=== PATIENT | male | born 1980 | race African-American/Black ===

== ENCOUNTER 2018-11-18 01:35 | Emergency (ER) | payer OTHER ==
[~2018-11-18] VITALS: Ht 182.9 cm; Wt 70.3 kg
[2018-11-18] MEDS ORDERED: CLINDAMYCIN 900 MG/50 ML IVPB 50 ML IV ONE (01:45)
[2018-11-18] MEDS ORDERED: LIDOCAINE 1% INJ 20 ML 20 ML VIAL INJ ONE (01:45)
[2018-11-18] MEDS ORDERED: TETANUS,DIPTH,PERTUSS P/F (BOOSTRIX) 0.5 ML VIAL IM ONE (01:45)
[2018-11-18] MEDS ORDERED: LIDOCAINE/EPI 2% 1:100,00 (XYLOCAINE) 20 ML VIAL INJ ONE (01:45)
[2018-11-18] MEDS ORDERED: fentaNYL INJECTION 100 MCG/2 ML AMP IVP ONE (02:00)
[2018-11-18 02:04] LABS: BASOPHILS % (AUTO) 1 % (0-10); EOSINOPHILS # (AUTO) 0.1 10^3/uL (0.0-0.3); EOSINOPHILS % (AUTO) 3 % (0-10); HEMATOCRIT 43 % (40-54); HEMOGLOBIN 14.5 G/DL (13.3-17.7); LYMPHOCYTES # (AUTO) 1.9 X 10^3 (1.0-4.0); LYMPHOCYTES % (AUTO) 44 % (12-44); MEAN CORPUSCULAR HEMOGLOBIN 29 PG (25-34); MEAN CORPUSCULAR HGB CONC 34 G/DL (32-36); MEAN CORPUSCULAR VOLUME 84 FL (80-99); MEAN PLATELET VOLUME 10.3 FL (7.4-10.4); MONOCYTES # (AUTO) 0.4 X 10^3 (0.0-1.0); MONOCYTES % (AUTO) 9 % (0-12); NEUTROPHILS % (AUTO) 44 % (42-75); PLATELET COUNT 218 10^3/uL (130-400); RED CELL DISTRIBUTION WIDTH 13.7 % (10.0-14.5); WHITE BLOOD COUNT 4.4 10^3/uL (4.3-11.0)
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
[2018-11-18 02:23] LABS: ALANINE AMINOTRANSFERASE 19 U/L (0-55); ALBUMIN 4.4 GM/DL (3.2-4.5); ALKALINE PHOSPHATASE 63 U/L (40-136); BILIRUBIN,TOTAL 0.2 MG/DL (0.1-1.0); BUN/CREATININE RATIO 9; CALCIUM 8.8 MG/DL (8.5-10.1); CARBON DIOXIDE 21 MMOL/L (21-32); CHLORIDE 108 MMOL/L (98-107); CREATININE SERUM 0.95 MG/DL (0.60-1.30); GFR ESTIMATED > 60; GLUCOSE 95 MG/DL (70-105); POTASSIUM 3.1 MMOL/L (3.6-5.0); SODIUM 142 MMOL/L (135-145); TOTAL PROTEIN 6.7 GM/DL (6.4-8.2)
[2018-11-18] MEDS ORDERED: ONDANSETRON 4 MG/2 ML (SDV) Z0FRAN ONE (03:05)
[2018-11-18] MEDS ORDERED: ONDANSETRON 4 MG/2 ML (SDV) Z0FRAN IVP ONE (03:05)
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
[2018-11-18 03:52] LABS: AMPHETAMINE SCREEN, URINE NEGATIVE (NEGATIVE); BARBITURATE SCREEN URINE NEGATIVE (NEGATIVE); BENZODIAZEPINES SCREEN URINE NEGATIVE (NEGATIVE); CANNABINOID SCREEN, URINE POSITIVE (NEGATIVE); COCAINE SCREEN URINE POSITIVE (NEGATIVE); METHADONE STAT NEGATIVE (NEGATIVE); METHAMPHETAMINE SCREEN URINE S NEGATIVE (NEGATIVE); OPIATE SCREEN URINE NEGATIVE (NEGATIVE); OXYCODONE STAT NEGATIVE (NEGATIVE); PROPOXYPHENE STAT NEGATIVE (NEGATIVE); TRICYCLIC ANTIDEPRESSANTS SCRE NEGATIVE (NEGATIVE)
[2018-11-18] MEDS ORDERED: KCL 10 MEQ TAB (MICRO K) PO ONE (04:00)
--- NOTE | 2018-11-18 05:00 | NUR ---
SUTURES TO RIGHT HAND USING 4-0 PROLENE AND 5-[address] BASILIO WITH ASSISTANCE OF MEDICAL STUDENT. 4 CM LAC TO 5TH FINGER KNUCKLE = 8 SUTURES 11 CM LAC TO DORSUM HAND = 11 SUTURES 4TH FINGER 1.5 CM LAC = 2 SUTURES DISTAL PALM 4 CM LAC = 3 SUTURES PROXIMAL PALM 4.5 CM LAC = 6 SUTURES HAND COVERED WITH XEROFORM, GAUZE ROLL, KERLEX, AND GUILHERME WRAP TO SECURE BY DR. BASILIO.
[2018-11-18] MEDS ORDERED: SULF1TAB35 PO (05:14)
[2018-11-18] MEDS ORDERED: HYDR-3812 PO (05:14)
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
[2018-11-18 05:34] VITALS: BP 137/79
--- NOTE | 2018-11-18 07:17 | Diagnostic Imaging Report ---
PATIENT HISTORY: Soft tissue injury to the right hand. Laceration.. TECHNIQUE: 3 views of the right hand COMPARISON: None FINDINGS: There is a soft tissue defect at the dorsal lateral aspect of the right fourth and fifth fingers. There is a linear density along the cortex of the fifth finger proximal phalanx. It is unclear if this represents tiny foreign bodies versus small cortical fragments of bone. No displaced fractures are seen. IMPRESSION: 1. Soft tissue laceration to the right fourth and fifth fingers with linear hyperdensities adjacent to the right fifth proximal phalanx. It is unclear if these represent tiny foreign bodies or small fragments of cortical bone. Called to [facility] ER at 7:16 a.m. by ronnie. Dictated by: Dictated on workstation # [id number]
== END 2018-11-18 05:44 | disposition home or self-care (01) ==
LOC: ER 01:38
DX: S66.921A Laceration of unspecified muscle, fascia and tendon at wrist and hand level, right hand, initial encounter (principal); S51.812A Laceration without foreign body of left forearm, initial encounter; S61.216A Laceration without foreign body of right little finger without damage to nail, initial encounter; S61.214A Laceration without foreign body of right ring finger without damage to nail, initial encounter; F10.129 Alcohol abuse with intoxication, unspecified; E87.6 Hypokalemia; R40.2142 Coma scale, eyes open, spontaneous, at arrival to emergency department; R40.2252 Coma scale, best verbal response, oriented, at arrival to emergency department; R40.2362 Coma scale, best motor response, obeys commands, at arrival to emergency department; F17.200 Nicotine dependence, unspecified, uncomplicated; Y90.7 Blood alcohol level of 200-239 mg/100 ml; X99.8XXA Assault by other sharp object, initial encounter
CPT/HCPCS: 36415; 73130; 80053; 80306; 80320; 85025; 90715

== ENCOUNTER 2018-12-04 12:40 | Emergency (ER) | payer OTHER ==
[~2018-12-04] VITALS: Ht 193 cm; Wt 71.9 kg
[~2018-12-04 12:40] MED LIST: HYDR-3812 PO; SULF1TAB35 PO
[2018-12-04 13:13] VITALS: BP 141/91
== END 2018-12-04 13:16 | disposition home or self-care (01) ==
LOC: EDUNIT# 12:40 → ER 12:41
DX: S61.411D Laceration without foreign body of right hand, subsequent encounter (principal); X58.XXXD Exposure to other specified factors, subsequent encounter

== ENCOUNTER 2020-11-25 06:21 | Inpatient (IN) | payer SELFPAY ==
[2020-11-25] VITALS (20 sets, daily range): BP systolic 127–163; BP diastolic 72–104
[~2020-11-25] VITALS: Ht 172 cm; Wt 71.9 kg
[~2020-11-25 06:21] MED LIST changes: +ACHD5005 PO; -HYDR-3812 PO; -SULF1TAB35 PO; +SULF1TAB38 PO
[2020-11-25] MEDS ORDERED: ceFAZolin INJECTION 1,000 MG in WATER (STERILE) FOR INJECTION 10 ML IV ONE (06:30)
[2020-11-25] MEDS ORDERED: fentaNYL INJ 100 MCG/2 ML AMP IVP ONE (06:30)
[2020-11-25] MEDS ORDERED: TETANUS,DIPTH,PERTUSS P/F (BOOSTRIX) 0.5 ML VIAL IM ONE (06:30)
[2020-11-25] MEDS ORDERED: NS IV 1000 ML 1,000 ML IV SCH (06:30)
[2020-11-25 06:44] LABS: HEMATOCRIT 45 % (40-54); HEMOGLOBIN 14.6 g/dL (13.3-17.7); MEAN CORPUSCULAR HEMOGLOBIN 28 pg (25-34); MEAN CORPUSCULAR HGB CONC 32 g/dL (32-36); MEAN CORPUSCULAR VOLUME 87 fL (80-99); MEAN PLATELET VOLUME 9.9 fL (9.0-12.2); PLATELET COUNT 243 10^3/uL (130-400); WHITE BLOOD COUNT 7.1 10^3/uL (4.3-11.0)
[2020-11-25] MEDS ORDERED: LIDOCAINE 1% INJ 20 ML 20 ML VIAL ONE (06:58)
[2020-11-25 06:59] LABS: POTASSIUM 3.2 MMOL/L (3.6-5.0)
[2020-11-25 07:00] LABS: ALBUMIN 4.3 GM/DL (3.2-4.5)
[2020-11-25] MEDS ORDERED: CATHETER FLUSH 10 ML SYR IV PRN (07:00)
[2020-11-25] MEDS ORDERED: NS 100 ML (IVPB) BAG IV ONE (07:00)
[2020-11-25] MEDS ORDERED: IOHEXOL 350 MG/ML 100 ML (OMNIPAQUE 350) VIAL IV ONE (07:00)
[2020-11-25] MEDS ORDERED: HOLD METFORMIN - RECEIVED CONTRAST 20 ML VIAL IV SCH (07:00)
[2020-11-25 07:02] LABS: TOTAL PROTEIN 7.2 GM/DL (6.4-8.2)
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
[2020-11-25 07:04] LABS: BILIRUBIN,TOTAL 0.3 MG/DL (0.1-1.0)
[2020-11-25 07:05] LABS: PHOSPHORUS 3.6 MG/DL (2.3-4.7)
[2020-11-25 07:06] LABS: CREATININE SERUM 0.84 MG/DL (0.60-1.30)
[2020-11-25 07:07] LABS: BILIRUBIN,DIRECT 0.1 MG/DL (0.0-0.3); BILIRUBIN,INDIRECT 0.2 MG/DL
[2020-11-25 07:09] LABS: MAGNESIUM 2.4 MG/DL (1.6-2.4)
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
[2020-11-25 07:11] LABS: FIBRIN DEGRADATION PRODUCTS < 0.27 UG/ML (0.00-0.49); FIBRINOGEN 232 MG/DL (221-496); INR 0.9 (0.8-1.4); PARTIAL THROMBOPLASTIN TIME 29 SEC (24-35)
--- NOTE | 2020-11-25 07:27 | Diagnostic Imaging Report ---
INDICATION: Pneumothorax Single AP view of the chest is obtained with comparison made to study of earlier in the day. There has been placement of left thoracostomy tube. Small left apical pneumothorax is noted. Right lung appears clear. There is no midline shift. IMPRESSION: Small left apical pneumothorax with left thoracostomy tube in place. Dictated by: Dictated on workstation # [id number]
[2020-11-25] MEDS ORDERED: ONDANSETRON 4 MG/2 ML (SDV) Z0FRAN ONE (07:29)
[2020-11-25] MEDS ORDERED: proPOfol 200 MG/20 ML (DIPRIVAN) VIAL IV ONE (07:29)
[2020-11-25] MEDS ORDERED: fentaNYL INJ 100 MCG/2 ML AMP ONE (07:29)
[2020-11-25] MEDS ORDERED: ROCURONIUM 10 MG/ML 5 ML SYRINGE IV ONE (07:29)
[2020-11-25] MEDS ORDERED: SUCCINYLCHOLINE INJ 100 MG/5 ML SYR/VIAL ONE (07:29)
[2020-11-25] MEDS ORDERED: MIDAZOLAM 2 MG/2 ML (VERSED) VIAL ONE (07:29)
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
[2020-11-25 07:43] LABS: BILIRUBIN,URINE NEGATIVE (NEGATIVE); CLARITY,URINE CLEAR; COLOR,URINE YELLOW; GLUCOSE, URINE (UA) NEGATIVE (NEGATIVE); KETONES,URINE NEGATIVE (NEGATIVE); LEUKOCYTE ESTERASE ,URINE NEGATIVE (NEGATIVE); NITRITE,URINE NEGATIVE (NEGATIVE); PH,URINE 6.5 (5-9); PROTEIN,URINE NEGATIVE (NEGATIVE)
[2020-11-25] MEDS: LACTATED RINGERS 1,000 ML IV PRN ×4 (07:47→08:54)
[2020-11-25 07:55] LABS: AMPHETAMINE SCREEN, URINE NEGATIVE (NEGATIVE); BARBITURATE SCREEN URINE NEGATIVE (NEGATIVE); BENZODIAZEPINES SCREEN URINE NEGATIVE (NEGATIVE); CANNABINOID SCREEN, URINE POSITIVE (NEGATIVE); COCAINE SCREEN URINE POSITIVE (NEGATIVE); METHADONE STAT NEGATIVE (NEGATIVE); METHAMPHETAMINE SCREEN URINE S NEGATIVE (NEGATIVE); OPIATE SCREEN URINE NEGATIVE (NEGATIVE); OXYCODONE STAT NEGATIVE (NEGATIVE); PROPOXYPHENE STAT NEGATIVE (NEGATIVE); TRICYCLIC ANTIDEPRESSANTS SCRE NEGATIVE (NEGATIVE)
[2020-11-25 08:03] LABS: BACTERIA,URINE TRACE /HPF; RBC,URINE RARE /HPF; SQUAMOUS EPITHELIAL CELL,UR RARE /HPF
[2020-11-25] MEDS ORDERED: SEVOFLURANE (ULTANE) 15 ML INHAL SOLN ONE (08:51)
[2020-11-25] MEDS ORDERED: morphine INJ 10 MG/ML 1ML (SYR OR VIAL) IVP ONE (09:00)
[2020-11-25] MEDS ORDERED: PROMETHAZINE INJ 25 MG/ML (PHENERGAN) AMP IVP ONE (09:00)
[2020-11-25] MEDS ORDERED: HYDROmorphone 2 MG/ML VIAL (DILAUDID) IV ONE (09:00)
[2020-11-25] MEDS ORDERED: MEPERIDINE (DEMEROL) INJ 50 MG/ML IVP ONE (09:00)
--- NOTE | 2020-11-25 09:17 | Anesthesia-General Post-Op ---
General Patient Condition Mental Status/LOC: Same as Preop Cardiovascular: Satisfactory Nausea/Vomiting: Absent Respiratory: Satisfactory Pain: Controlled Complications: Absent Post Op Complications Complications None Follow Up Care/Instructions Patient Instructions None needed. Anesthesia/Patient Condition Patient Condition Patient is doing well, no complaints, stable vital signs, no apparent adverse anesthesia problems. No complications reported per nursing. ION CRUZ CRNA Nov 25, 2020 09:17
[2020-11-25] MEDS: ONDANSETRON 4 MG/2 ML (SDV) Z0FRAN IVP PRN ×2 (10:26→20:08)
[2020-11-25] MEDS: fentaNYL INJ 100 MCG/2 ML AMP IVP PRN ×5 (10:35→22:29)
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
[2020-11-25] MEDS: POTASSIUM CL 10MEQ/50ML IVPB 50 ML IV SCH ×4 (12:20→15:12)
[2020-11-25] MEDS: LACTATED RINGERS 1,000 ML IV SCH ×2 (12:20→19:43)
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
[2020-11-25] MEDS: ceFAZolin INJECTION 1,000 MG in WATER (STERILE) FOR INJECTION 10 ML IV SCH ×2 (16:27→23:48)
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
[2020-11-25] MEDS: HYDROcodone/APAP 5 MG/325 MG (LORTAB) TAB PO PRN ×2 (16:30→22:29)
[2020-11-25] MEDS ORDERED: RT-ALBUTEROL SULF 2.5 MG/3 ML PRE-MIX VIAL INH PRN (17:15)
[2020-11-25] MEDS: DOCUSATE SODIUM 100 MG (COLACE) CAP PO SCH (19:43)
[2020-11-25] MEDS: RT-ALBUTEROL SULF 2.5 MG/3 ML PRE-MIX VIAL INH SCH (23:07)
[2020-11-26] VITALS (20 sets, daily range): BP systolic 94–160; BP diastolic 48–110
[2020-11-26] MEDS: LACTATED RINGERS 1,000 ML IV SCH ×3 (02:15→18:56)
[2020-11-26] MEDS: fentaNYL INJ 100 MCG/2 ML AMP IVP PRN ×8 (04:33→23:03)
[2020-11-26] MEDS: HYDROcodone/APAP 5 MG/325 MG (LORTAB) TAB PO PRN ×5 (04:34→23:03)
[2020-11-26 05:13] LABS: BASOPHILS % (AUTO) 0 % (0-10); EOSINOPHILS % (AUTO) 0 % (0-10); HEMATOCRIT 43 % (40-54); HEMOGLOBIN 13.6 g/dL (13.3-17.7); LYMPHOCYTES # (AUTO) 1.2 10^3/uL (1.0-4.0); LYMPHOCYTES % (AUTO) 16 % (12-44); MEAN CORPUSCULAR HEMOGLOBIN 28 pg (25-34); MEAN CORPUSCULAR HGB CONC 32 g/dL (32-36); MEAN CORPUSCULAR VOLUME 86 fL (80-99); MONOCYTES # (AUTO) 0.6 10^3/uL (0.0-1.0); MONOCYTES % (AUTO) 9 % (0-12); NEUTROPHILS # (AUTO) 5.6 10^3/uL (1.8-7.8); NEUTROPHILS % (AUTO) 75 % (42-75); PLATELET COUNT 199 10^3/uL (130-400); WHITE BLOOD COUNT 7.4 10^3/uL (4.3-11.0)
[2020-11-26 05:29] LABS: ALBUMIN 3.8 GM/DL (3.2-4.5); POTASSIUM 3.9 MMOL/L (3.6-5.0)
[2020-11-26 05:30] LABS: CALCIUM 9.1 MG/DL (8.5-10.1)
[2020-11-26 05:32] LABS: TOTAL PROTEIN 6.4 GM/DL (6.4-8.2)
[2020-11-26 05:35] LABS: CREATININE SERUM 0.76 MG/DL (0.60-1.30); PHOSPHORUS 2.7 MG/DL (2.3-4.7)
[2020-11-26 05:38] LABS: MAGNESIUM 1.9 MG/DL (1.6-2.4)
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
[2020-11-26] MEDS: RT-ALBUTEROL SULF 2.5 MG/3 ML PRE-MIX VIAL INH SCH ×2 (07:14→22:51)
[2020-11-26] MEDS: THIAMINE 100 MG (VITAMIN B-1) TAB PO SCH (07:51)
[2020-11-26] MEDS: FOLIC ACID 1 MG TAB PO SCH (07:51)
[2020-11-26] MEDS: DOCUSATE SODIUM 100 MG (COLACE) CAP PO SCH ×2 (07:52→20:16)
[2020-11-26] MEDS: PANTOPRAZOLE 40 MG (PROTONIX) TAB PO SCH (07:52)
[2020-11-26] MEDS: ONDANSETRON 4 MG/2 ML (SDV) Z0FRAN IVP PRN ×2 (08:32→10:56)
--- NOTE | 2020-11-26 08:32 | Diagnostic Imaging Report ---
INDICATION: Followup pneumothorax, chest tube COMPARISON: 11/25/2020 TECHNIQUE: Single radiograph of the chest dated 11/26/2020. FINDINGS: Left-sided chest tube is again identified with the distal tip projecting towards the left upper lung. Metallic cherie are now identified overlying the left lateral chest and left shoulder region, new from the prior examination. The cardiac silhouette is within normal limits in size. No significant pulmonary vascular congestion. The right lung is clear. Small left basilar pleural parenchymal opacity has developed since the prior examination. Additionally, thin lucencies are noted along the left heart border. Previously noted left-sided pneumothorax appears improved without definitive pneumothorax noted apically. Subcutaneous emphysema of the left chest wall is again seen. Osseous structures appear stable. IMPRESSION: Left-sided chest tube is in place with improvement of previously noted left-sided pneumothorax. Very thin lucency along the left heart border, which may relate to very minimal pneumomediastinum versus some residual pneumothorax noted medially. Recommend continued radiographic followup. Developing small left basilar pleural-parenchymal opacity, related to a combination of pleural fluid with adjacent atelectasis and/or infiltrate. Placement of multiple surgical clips overlying the left shoulder and chest. Dictated by: Dictated on workstation # [id number]
[2020-11-26] MEDS: HYDROmorphone 2 MG/ML VIAL (DILAUDID) IV PRN (10:07)
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
--- NOTE | 2020-11-26 11:14 | Physical Therapy Daily Note ---
PT Daily Note-Current Subjective Pt. in bed, agrees to sit up in chair. Nurse present to give pain medication, no objective pain measure given. Pt. does wince in pain with transitional movements. Mental Status Patient Orientation: Person, Place, Time, Situation Attachments: Chest Tube, IV Transfers SCALE: Activities may be completed with or without assistive devices. 2-Hodnnpuxeu-tsffwyu completes the activity by him/herself with no assistance from a helper. 5-Set-up or Clean-up Assistance-helper sets up or cleans up; patient completes activity. [place] assists only prior to or following the activity. 4-Supervision or Touching Assistance-helper provides verbal cues and/or touching/steadying and/or contact guard assistance as patient completes activity. Assistance may be provided throughout the activity or intermittently. 3-Partial/Moderate Assistance-helper does LESS THAN HALF the effort. [place] lifts, holds or supports trunk or limbs, but provides less than half the effort. 2-Substantial/Maximal Assistance-helper does MORE THAN HALF the effort. [place] lifts or holds trunk or limbs and provides more than half the effort. 6-Xsuslviml-usubjs does ALL the effort. Patient does none of the effort to complete the activity. Or, the assistance of 2 or more helpers is required for the patient to complete the activity. If activity was not attempted, code reason: 7-Patient Refused. 9-Not Applicable-not attempted and the patient did not perform the activity before the current illness, exacerbation or injury. 10-Not Attempted due to Environmental Limitations-(lack of equipment, weather restraints, etc.). 88-Not Attempted due to Medical Conditions or Safety Concerns. Lying to Sitting/Side of Bed(Q: 4 Sit to Stand (QC): 4 Weight Bearing Right Lower Extremity: Right Weight Bearing/Tolerated Left Lower Extremity: Left Full Weight Bearing Gait Training Does the Patient Walk?: Yes Distance: 40 ft Walk 10 feet (QC): 4 Gait Persons Needed: 1 Gait Assistive Device: None Treatments gait training in room, transfers Assessment Current Status: Good Progress Pt. is progressing very well with therapy. He was able to ambulate in room today and demonstrates good gait balance. Pt. has most pain with transitional movements to be out of bed and sit/stand. Pt. up in chair post session with all needs met. PT Intermediate Goals Intermediate Goals PT Groundskeeper Porter Goals Time Frame: Dec 02, 2020 Roll Left & Right (QC): 6 Sit to Lying (QC): 6 Lying-Sitting on Side/Bed(QC): 6 Sit to Stand (QC): 6 Chair/Lae-kg-Zousp Xfer(QC): 6 Walk 10 feet (QC): 6 Walk 50ft with 2 Turns (QC): 6 Walk 150 ft (QC): 6 PT Plan Treatment/Plan Treatment Plan: Continue Plan of Care Treatment Plan: Bed Mobility, Education, Functional Activity Cami, Functional Strength, Gait, Safety, Therapeutic Exercise, Transfers Treatment Duration: Dec 02, 2020 Frequency: 6 times per week Estimated Hrs Per Day: .25 hour per day Patient and/or Family Agrees t: Yes Time/GCodes Time In: 1000 Time Out: 1020 Total Billed Treatment Time: 20 Total Billed Treatment 1, GT 20' AWILDA PRATER PT Nov 26, 2020 11:14
[2020-11-26] MEDS ORDERED: PROMETHAZINE INJ 25 MG/ML (PHENERGAN) AMP IVP PRN (11:15)
[2020-11-26] MEDS ORDERED: ONDANSETRON 4 MG/2 ML (SDV) Z0FRAN IVP PRN (11:30)
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
[2020-11-27] VITALS (16 sets, daily range): BP systolic 119–161; BP diastolic 57–108
[2020-11-27] MEDS: fentaNYL INJ 100 MCG/2 ML AMP IVP PRN ×8 (02:23→23:52)
[2020-11-27] MEDS: LACTATED RINGERS 1,000 ML IV SCH ×2 (02:30→14:43)
[2020-11-27] MEDS: HYDROcodone/APAP 5 MG/325 MG (LORTAB) TAB PO PRN ×4 (03:33→18:06)
[2020-11-27] MEDS ORDERED: KCL 20 MEQ TAB (K-DUR) PO SCH (06:00)
[2020-11-27] MEDS ORDERED: POTASSIUM CL 10MEQ/50ML IVPB 50 ML IV SCH (06:00)
[2020-11-27] MEDS ORDERED: MAGNESIUM 1 GM/100 ML IVPB 100 ML IV SCH (06:00)
[2020-11-27] MEDS: THIAMINE 100 MG (VITAMIN B-1) TAB PO SCH (06:19)
[2020-11-27 06:23] LABS: BASOPHILS % (AUTO) 0 % (0-10); EOSINOPHILS # (AUTO) 0.1 10^3/uL (0.0-0.3); EOSINOPHILS % (AUTO) 1 % (0-10); HEMATOCRIT 41 % (40-54); HEMOGLOBIN 13.2 g/dL (13.3-17.7); LYMPHOCYTES # (AUTO) 1.3 10^3/uL (1.0-4.0); LYMPHOCYTES % (AUTO) 19 % (12-44); MEAN CORPUSCULAR HEMOGLOBIN 28 pg (25-34); MEAN CORPUSCULAR HGB CONC 32 g/dL (32-36); MEAN CORPUSCULAR VOLUME 87 fL (80-99); MONOCYTES # (AUTO) 0.6 10^3/uL (0.0-1.0); MONOCYTES % (AUTO) 10 % (0-12); NEUTROPHILS # (AUTO) 4.7 10^3/uL (1.8-7.8); NEUTROPHILS % (AUTO) 70 % (42-75); PLATELET COUNT 209 10^3/uL (130-400); WHITE BLOOD COUNT 6.8 10^3/uL (4.3-11.0)
[2020-11-27 06:36] LABS: ALBUMIN 3.6 GM/DL (3.2-4.5); POTASSIUM 3.4 MMOL/L (3.6-5.0)
[2020-11-27 06:37] LABS: CALCIUM 9.1 MG/DL (8.5-10.1)
[2020-11-27 06:39] LABS: TOTAL PROTEIN 6.3 GM/DL (6.4-8.2)
[2020-11-27 06:40] LABS: BILIRUBIN,TOTAL 0.6 MG/DL (0.1-1.0)
[2020-11-27 06:42] LABS: CREATININE SERUM 0.78 MG/DL (0.60-1.30); PHOSPHORUS 2.8 MG/DL (2.3-4.7)
[2020-11-27 06:45] LABS: MAGNESIUM 1.8 MG/DL (1.6-2.4)
[2020-11-27] MEDS: DOCUSATE SODIUM 100 MG (COLACE) CAP PO SCH ×2 (07:39→20:36)
[2020-11-27] MEDS: PANTOPRAZOLE 40 MG (PROTONIX) TAB PO SCH (07:40)
[2020-11-27] MEDS: FOLIC ACID 1 MG TAB PO SCH (07:40)
[2020-11-27] MEDS ORDERED: KCL 20 MEQ TAB (K-DUR) PO ONE (08:00)
--- NOTE | 2020-11-27 08:19 | Tele-ICU Progress Note ---
Subjective Date Seen by a Provider: Nov 27, 2020 Time Seen by a Provider: 07:20 Subjective/Events-last exam This virtual visit was conducted using real time audio/video. Thank you for asking us to see this patient for respiratory issues. HPC: Recent events: none, on water seal per RN PE: VSS. Appears comfortable. HEENT: No obvious masses, adenopathy or JVD. Chest: clear to auscultation. CV: RRR S1 S2 No murmur or added sounds. Abd: Non-tender. Bowel sounds Y. : Unremarkable. Guzman N. ZIGZAG STITCHER/psychiatric: Alert and oriented, grossly intact. No obvious focal findings. Extremities: edema. Capillary refill < 3 seconds. Skin: unremarkable. Results: Decreased Hb 13.2, K 3.4. CXR unchanged. A/P: Respiratory insufficiency/distress: greatly improved. Available chart/ vitals / labs /images reviewed. Video assessment done using teleICU camera, rest of exam as per RN. Respiratory: Continue present management with pulm toilet/albuterol. Possible transfer today. Discussed with DEREK Pruitt. Asked RN to reach out to eICU if any questions or concerns later. Time spent with patient/coordination of care with other health professionals (mins):15 Sepsis Event Evaluation Height, Weight, BMI Height: 6'0" Weight: 155lbs. oz. 70.677325nm; 24.33 BMI Method:Actual Focused Exam Lactate Level 11/25/20 06:38: Lactic Acid Level 1.74 Exam Exam Patient acknowledged, consented, and participated in this virtual visit which was conducted using real time audio/video Vital Signs Date Time Temp Pulse Resp B/P (MAP) Pulse Ox O2 Delivery O2 Flow Rate FiO2 11/27/20 08:00 107 36 161/108 (125) 96 Room Air 11/27/20 07:59 37.3 11/27/20 07:44 96 Room Air 11/27/20 07:00 80 11/27/20 07:00 84 23 142/90 (107) 94 Room Air 11/27/20 06:00 74 12 136/100 (112) 95 Room Air 11/27/20 05:00 81 12 150/98 (115) 94 Room Air 11/27/20 05:00 37.4 11/27/20 04:00 79 12 132/65 (87) 96 Room Air 11/27/20 04:00 93 Room Air 11/27/20 03:00 86 12 119/57 (77) 97 Room Air 11/27/20 02:00 83 14 128/76 (93) 97 Room Air 11/27/20 01:00 98 12 141/63 (89) 97 Room Air 11/27/20 01:00 92 11/27/20 00:00 96 13 128/72 (90) 96 Room Air 11/26/20 23:59 93 Room Air 11/26/20 23:00 78 14 130/58 (82) 100 Room Air 11/26/20 22:51 99 Room Air 11/26/20 22:00 89 24 135/48 (77) 97 Room Air 11/26/20 21:00 90 20 135/98 (110) 97 Room Air 11/26/20 20:00 93 16 138/93 (108) 97 Room Air 11/26/20 20:00 93 Room Air 11/26/20 19:20 37.8 11/26/20 19:00 92 19 133/87 (102) 97 Room Air 11/26/20 19:00 90 11/26/20 18:00 90 14 148/102 (117) 96 Room Air 11/26/20 17:00 76 14 132/89 (103) 98 Room Air 11/26/20 16:12 96 Nasal Cannula 0.00 11/26/20 16:00 90 18 143/86 (105) 95 Room Air 11/26/20 15:45 37.2 11/26/20 15:00 81 13 96 Room Air 11/26/20 14:00 84 18 97 Room Air 11/26/20 13:00 90 16 95 Room Air 11/26/20 12:51 67 11/26/20 12:06 36.2 11/26/20 12:00 93 Nasal Cannula 0.00 11/26/20 12:00 85 24 158/109 (125) 95 Room Air 11/26/20 11:00 80 16 92 Room Air 11/26/20 10:00 66 13 136/92 (109) 96 Room Air 11/26/20 09:00 93 28 152/88 (99) 96 Room Air 11/26/20 08:29 37.4 I & O 11/27/20 07:00 Intake Total 3450 ml Output Total 3157 ml Balance 293 ml Height & Weight Height: 6'0" Weight: 155lbs. oz. 70.076956nb; 24.33 BMI Method:Actual General Appearance: Anxious, Mild Distress HEENT: PERRL/EOMI, Normal ENT Inspection Neck: Full Range of Motion, Normal Inspection, Non Tender, Supple Respiratory: Normal Breath Sounds, No Accessory Muscle Use, No Respiratory Dist ress, Other (CT in place, no air leak) Cardiovascular: Regular Rate, Rhythm, No Murmur Capillary Refill: Less Than 3 Seconds Peripheral Pulses: 2+ Dorsalis Pedis (R), 2+ Left Dors-Pedis (L) Gastrointestinal: normal bowel sounds, non tender, soft Extremity: Normal Capillary Refill, Normal Inspection, Normal Range of Motion, Non Tender, No Calf Tenderness, No Pedal Edema Neurologic/Psychiatric: Alert, Oriented x3, No Motor/Sensory Deficits, optical advisor II- XII Norm as Tested Skin: Normal Color, Warm/Dry, Other (dressing over chest. CTI. tenderness to palpation) Results Lab Laboratory Tests 11/26/20 05:08 11/27/20 04:55 Assessment/Plan Assessment/Plan See free text JOVANI ROBERTS MD Nov 27, 2020 08:19
[2020-11-27] MEDS: RT-ALBUTEROL SULF 2.5 MG/3 ML PRE-MIX VIAL INH SCH (09:09)
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
--- NOTE | 2020-11-27 11:07 | Diagnostic Imaging Report ---
Indication: Dyspnea, followup pneumothorax. Comparison: 11/26/2020. Discussion: Single portable upright view of the chest was obtained. Left chest tube is stable. Small amount of left chest wall subcutaneous emphysema is decreased. No pneumothorax identified. Small left pleural effusion is stable. Normal heart size. The right lung is well aerated. Impression: 1. Decreasing left chest wall subcutaneous emphysema. No pneumothorax. Dictated by: Dictated on workstation # [id number]
[2020-11-27] MEDS: HYDROmorphone 2 MG/ML VIAL (DILAUDID) IV PRN ×3 (11:57→20:36)
[2020-11-28 03:52] VITALS: BP 152/84
[2020-11-28] MEDS: HYDROmorphone 2 MG/ML VIAL (DILAUDID) IV PRN ×2 (04:11→10:57)
[2020-11-28 04:29] LABS: BASOPHILS % (AUTO) 1 % (0-10); EOSINOPHILS # (AUTO) 0.2 10^3/uL (0.0-0.3); EOSINOPHILS % (AUTO) 4 % (0-10); HEMATOCRIT 45 % (40-54); HEMOGLOBIN 14.4 g/dL (13.3-17.7); LYMPHOCYTES # (AUTO) 1.5 10^3/uL (1.0-4.0); LYMPHOCYTES % (AUTO) 28 % (12-44); MEAN CORPUSCULAR HEMOGLOBIN 28 pg (25-34); MEAN CORPUSCULAR HGB CONC 32 g/dL (32-36); MEAN CORPUSCULAR VOLUME 87 fL (80-99); MEAN PLATELET VOLUME 10.3 fL (9.0-12.2); MONOCYTES # (AUTO) 0.6 10^3/uL (0.0-1.0); MONOCYTES % (AUTO) 11 % (0-12); NEUTROPHILS % (AUTO) 56 % (42-75); PLATELET COUNT 225 10^3/uL (130-400); WHITE BLOOD COUNT 5.4 10^3/uL (4.3-11.0)
[2020-11-28 04:43] LABS: POTASSIUM 3.8 MMOL/L (3.6-5.0)
[2020-11-28 04:44] LABS: CALCIUM 9.8 MG/DL (8.5-10.1)
[2020-11-28 04:45] LABS: TOTAL PROTEIN 7.2 GM/DL (6.4-8.2)
[2020-11-28 04:47] LABS: BILIRUBIN,TOTAL 0.6 MG/DL (0.1-1.0)
[2020-11-28 04:49] LABS: CREATININE SERUM 0.78 MG/DL (0.60-1.30)
[2020-11-28] MEDS: THIAMINE 100 MG (VITAMIN B-1) TAB PO SCH (06:11)
--- NOTE | 2020-11-28 06:42 | Diagnostic Imaging Report ---
INDICATION: Chest tube evaluation AP view of the chest is obtained. Since study of one day earlier, left thoracostomy tube remains in place. There is blunting of the left costophrenic sulcus, however, no pneumothorax is identified. The right lung remains clear and well expanded. IMPRESSION: Mild left pleural fluid and/or thickening without evidence of pneumothorax. Dictated by: Dictated on workstation # [id number]
[2020-11-28] MEDS: fentaNYL INJ 100 MCG/2 ML AMP IVP PRN ×2 (07:00→09:21)
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
[2020-11-28] MEDS: FOLIC ACID 1 MG TAB PO SCH (07:55)
[2020-11-28] MEDS: DOCUSATE SODIUM 100 MG (COLACE) CAP PO SCH ×2 (07:55→20:31)
[2020-11-28] MEDS: PANTOPRAZOLE 40 MG (PROTONIX) TAB PO SCH (07:55)
[2020-11-28 08:00] VITALS: BP 150/98
[2020-11-28 12:00] VITALS: BP 160/110
[2020-11-28] MEDS ORDERED: hydrALAZINE (APESOLINE) 20 MG/ML VIAL IV PRN (13:00)
[2020-11-28] MEDS ORDERED: amLODIPine 10 MG (NORVASC) TAB PO NR (13:00)
[2020-11-28] MEDS: HYDROcodone/APAP 5 MG/325 MG (LORTAB) TAB PO PRN ×3 (13:02→23:00)
--- NOTE | 2020-11-28 13:51 | Diagnostic Imaging Report ---
INDICATION: Chest tube removal follow-up. FINDINGS: Single view of the chest shows normal heart size and vascularity. There has been interval removal of the left-sided chest tube since the earlier exam. There remains a small amount of fluid at the costophrenic angle. There is no pneumothorax. IMPRESSION: Interval chest tube removal. No pneumothorax is seen. Dictated by: Dictated on workstation # [id number]
--- NOTE | 2020-11-28 15:06 | Physical Therapy Daily Note ---
PT Daily Note-Current Subjective Pt in bed upon arrival and agrees to tx. Pt states no pain at this time and states he has been getting around well. Mental Status Patient Orientation: Person, Place, Time, Situation Transfers SCALE: Activities may be completed with or without assistive devices. 9-Ukhzcfjmhx-vzipjri completes the activity by him/herself with no assistance from a helper. 5-Set-up or Clean-up Assistance-helper sets up or cleans up; patient completes activity. [place] assists only prior to or following the activity. 4-Supervision or Touching Assistance-helper provides verbal cues and/or touching/steadying and/or contact guard assistance as patient completes activity. Assistance may be provided throughout the activity or intermittently. 3-Partial/Moderate Assistance-helper does LESS THAN HALF the effort. [place] lifts, holds or supports trunk or limbs, but provides less than half the effort. 2-Substantial/Maximal Assistance-helper does MORE THAN HALF the effort. [place] lifts or holds trunk or limbs and provides more than half the effort. 4-Uejeorwms-roonqs does ALL the effort. Patient does none of the effort to complete the activity. Or, the assistance of 2 or more helpers is required for the patient to complete the activity. If activity was not attempted, code reason: 7-Patient Refused. 9-Not Applicable-not attempted and the patient did not perform the activity before the current illness, exacerbation or injury. 10-Not Attempted due to Environmental Limitations-(lack of equipment, weather restraints, etc.). 88-Not Attempted due to Medical Conditions or Safety Concerns. Sit to Lying (QC): 5 Lying to Sitting/Side of Bed(Q: 5 Sit to Stand (QC): 5 Weight Bearing Right Lower Extremity: Right Weight Bearing/Tolerated Left Lower Extremity: Left Full Weight Bearing Gait Training Does the Patient Walk?: Yes Distance: 500' Walk 10 feet (QC): 5 Walk 50 ft with 2 Turns(QC): 5 Walk 150 ft (QC): 5 Gait Persons Needed: 1 Gait Assistive Device: None Treatments Pt completes supine to sit transfer and sit to stand SBA. Pt amb 500' in hallways w/ SBA and no AD. Pt had no LOB or gait deviations noted. Pt returned to room post amb and sat EOB. Pt sit to supine SBA and was left with all needs met, call light in hand. Assessment Current Status: Good Progress Pt increasing endurance, strength, and mobility PT Intermediate Goals Intermediate Goals PT Drawing Operator Goals Time Frame: Dec 02, 2020 Roll Left & Right (QC): 6 Sit to Lying (QC): 6 Lying-Sitting on Side/Bed(QC): 6 Sit to Stand (QC): 6 Chair/Llq-yf-Cuahz Xfer(QC): 6 Walk 10 feet (QC): 6 Walk 50ft with 2 Turns (QC): 6 Walk 150 ft (QC): 6 PT Plan Treatment/Plan Treatment Plan: Continue Plan of Care Treatment Plan: Bed Mobility, Education, Functional Activity Cami, Functional Strength, Gait, Safety, Therapeutic Exercise, Transfers Treatment Duration: Dec 02, 2020 Frequency: 6 times per week Estimated Hrs Per Day: .25 hour per day Patient and/or Family Agrees t: Yes Time/GCodes Time In: 1434 Time Out: 1443 Total Billed Treatment Time: 9 Total Billed Treatment 1, GT GEOVANNI SMITH SENIOR ELECTRICAL PROJECT MANAGER Nov 28, 2020 15:06
[2020-11-28 16:00] VITALS: BP 150/90
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
[2020-11-28 20:00] VITALS: BP 144/89
[2020-11-28 23:21] VITALS: BP 158/98
[2020-11-29 03:30] VITALS: BP 140/86
[2020-11-29 04:43] LABS: BASOPHILS % (AUTO) 1 % (0-10); EOSINOPHILS # (AUTO) 0.3 10^3/uL (0.0-0.3); EOSINOPHILS % (AUTO) 5 % (0-10); HEMATOCRIT 46 % (40-54); HEMOGLOBIN 14.8 g/dL (13.3-17.7); LYMPHOCYTES # (AUTO) 1.5 10^3/uL (1.0-4.0); LYMPHOCYTES % (AUTO) 28 % (12-44); MEAN CORPUSCULAR HEMOGLOBIN 27 pg (25-34); MEAN CORPUSCULAR HGB CONC 32 g/dL (32-36); MEAN CORPUSCULAR VOLUME 86 fL (80-99); MEAN PLATELET VOLUME 9.8 fL (9.0-12.2); MONOCYTES # (AUTO) 0.5 10^3/uL (0.0-1.0); MONOCYTES % (AUTO) 8 % (0-12); NEUTROPHILS # (AUTO) 3.1 10^3/uL (1.8-7.8); NEUTROPHILS % (AUTO) 58 % (42-75); PLATELET COUNT 226 10^3/uL (130-400); WHITE BLOOD COUNT 5.4 10^3/uL (4.3-11.0)
[2020-11-29] MEDS: HYDROcodone/APAP 5 MG/325 MG (LORTAB) TAB PO PRN ×2 (04:46→09:02)
[2020-11-29 05:00] LABS: POTASSIUM 3.9 MMOL/L (3.6-5.0)
[2020-11-29 05:02] LABS: TOTAL PROTEIN 7.1 GM/DL (6.4-8.2)
[2020-11-29 05:04] LABS: BILIRUBIN,TOTAL 0.6 MG/DL (0.1-1.0)
[2020-11-29 05:06] LABS: CREATININE SERUM 0.84 MG/DL (0.60-1.30)
[2020-11-29] MEDS: THIAMINE 100 MG (VITAMIN B-1) TAB PO SCH (06:04)
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
[2020-11-29 08:25] VITALS: BP 152/98
[2020-11-29] MEDS ORDERED: amLODIPine 10 MG (NORVASC) TAB PO SCH (09:00)
[2020-11-29] MEDS: FOLIC ACID 1 MG TAB PO SCH (09:02)
[2020-11-29] MEDS: PANTOPRAZOLE 40 MG (PROTONIX) TAB PO SCH (09:02)
[2020-11-29] MEDS: DOCUSATE SODIUM 100 MG (COLACE) CAP PO SCH (09:02)
--- NOTE | 2020-11-29 10:29 | Physical Therapy Daily Note ---
PT Daily Note-Current Subjective Patient agrees to PT. No c/o. Mental Status Patient Orientation: Normal For Age Transfers SCALE: Activities may be completed with or without assistive devices. 0-Pkcdvatuwr-oaasbwa completes the activity by him/herself with no assistance from a helper. 5-Set-up or Clean-up Assistance-helper sets up or cleans up; patient completes activity. [place] assists only prior to or following the activity. 4-Supervision or Touching Assistance-helper provides verbal cues and/or touching/steadying and/or contact guard assistance as patient completes activity. Assistance may be provided throughout the activity or intermittently. 3-Partial/Moderate Assistance-helper does LESS THAN HALF the effort. [place] lifts, holds or supports trunk or limbs, but provides less than half the effort. 2-Substantial/Maximal Assistance-helper does MORE THAN HALF the effort. [place] lifts or holds trunk or limbs and provides more than half the effort. 3-Nyrqyschs-aewxdf does ALL the effort. Patient does none of the effort to c omplete the activity. Or, the assistance of 2 or more helpers is required for the patient to complete the activity. If activity was not attempted, code reason: 7-Patient Refused. 9-Not Applicable-not attempted and the patient did not perform the activity before the current illness, exacerbation or injury. 10-Not Attempted due to Environmental Limitations-(lack of equipment, weather restraints, etc.). 88-Not Attempted due to Medical Conditions or Safety Concerns. Lying to Sitting/Side of Bed(Q: 6 Sit to Stand (QC): 6 Chair/Bau-qg-Xnyad Xfer(QC): 6 Weight Bearing Right Lower Extremity: Right Weight Bearing/Tolerated Left Lower Extremity: Left Full Weight Bearing Gait Training Does the Patient Walk?: Yes Distance: 300' Walk 10 feet (QC): 6 Walk 50 ft with 2 Turns(QC): 6 Walk 150 ft (QC): 6 Gait Assistive Device: None no deviation Treatments deep breathing education to encourage incentive spirometer use Assessment Current Status: Excellent Progress PT Longterm Goals Hospital Cleaner Goals PT Longterm Goals Time Frame: Dec 02, 2020 Roll Left & Right (QC): 6 Sit to Lying (QC): 6 Lying-Sitting on Side/Bed(QC): 6 Sit to Stand (QC): 6 Chair/Hxw-cn-Jidrq Xfer(QC): 6 Walk 10 feet (QC): 6 Walk 50ft with 2 Turns (QC): 6 Walk 150 ft (QC): 6 PT Plan Treatment/Plan Treatment Plan: Discontinue PT, goals met Treatment Plan: Bed Mobility, Education, Functional Activity Cami, Functional Strength, Gait, Safety, Therapeutic Exercise, Transfers Treatment Duration: Dec 02, 2020 Frequency: 6 times per week Estimated Hrs Per Day: .25 hour per day Patient and/or Family Agrees t: Yes Time/GCodes Time In: 846 Time Out: 857 Total Billed Treatment Time: 11 Total Billed Treatment 1 visit FA 11 min SHAE MÉNDEZ PT Nov 29, 2020 10:29
[2020-11-29] MEDS ORDERED: ACHD5005 PO (14:47)
[2020-11-29] MEDS ORDERED: AMLO-251 PO (14:47)
[2020-11-29] MEDS ORDERED: CARV12.53 PO (14:47)
[2020-11-29] MEDS ORDERED: DOCU-239 PO (14:47)
--- NOTE | 2020-11-29 14:50 | Discharge Inst-Simple/Standard ---
Discharge Inst-Standard Discharge Medications New, Converted or Re-Newed RX: Transmitted to Pharmacy Patient Instructions/Follow Up Plan of Care/Instructions/FU: Yisel 2 weeks. Make appointment to be seen in next 2 weeks for Primay care physician at [facility] Activity as Tolerated: No Discharge Diet: Regular Diet Other Inst to Patient Follow up Appt: Make appointment for [address] Morillo. Primary care provider for next 2 weeks at [facility]. Instructions: No lifting greater than 10 pounds. No strenuous activity. May shower in 24 hours, no tub bath or soaking. Use incentive spirometer at home as directed. No Smoking Skin/Wound Care: You have cherie, keep area clean and dry. Where chest tube was, keep clean and dry and change bandage daily until healed. Symptoms to Report: Appetite Changes, Extremity Discoloration, Numbness/Tingling, Swelling Increased, Bleeding Excessive, Eyesight Changes, Pain Increased, Urine Color Change, Constipation(Persistent), Fever over 101 degree F, Pain/Pressure in chest, Urinating Difficulty, Cough Up/Vomit Blood, Heart Beat Irreg/Pounding, Pain/Pressure in jaw, Vaginal Bleeding Increase, Cramps in feet or legs, Lightheadedness, Pain/Pressure in shoulder, Diarrhea(Persistent), Memory Changes Suddenly, Questions/Concerns, Weight gain consecutive days, Dizziness/Fainting, Nausea/Vomiting, Shortness of Breath, Weight gain over 2 pounds If questions or concerns contact your physician Or seek help at emergency department. AUSTIN MORILLO DO Nov 29, 2020 14:50
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
== END 2020-11-29 15:20 | disposition home or self-care (01) | DRG 168 ==
LOC: EDUNIT# 06:21 → ER 06:23 → ICU 07:38 → SDC 07:38 → ICU 09:51 → SDC 09:51 → ICU 16:29 → SDC 11-26 11:16 → UNDOADMIN 11-26 15:03 → ICU 11-26 15:03 → 4TH 11-27 18:33 → UNDODISIN 11-29 15:20
PROVIDERS: ADMIT Surgery; ATTEND Surgery
PROC: 0W9B30Z Drainage of Left Pleural Cavity with Drainage Device, Percutaneous Approach (ICD-10-PCS; principal; 2020-11-25 07:47)
PROC: 0WQ80ZZ Repair Chest Wall, Open Approach (ICD-10-PCS; 2020-11-28)
PROC: 0HQCXZZ Repair Left Upper Arm Skin, External Approach (ICD-10-PCS; 2020-11-28)
DX: S27.6 Injury of pleura (principal); S21.312A Laceration without foreign body of left front wall of thorax with penetration into thoracic cavity, initial encounter; S27.0XXA Traumatic pneumothorax, initial encounter; S41.012A Laceration without foreign body of left shoulder, initial encounter; F14.129 Cocaine abuse with intoxication, unspecified; F10.129 Alcohol abuse with intoxication, unspecified; F12.129 Cannabis abuse with intoxication, unspecified; I10 Essential (primary) hypertension; Z20.822 Contact with and (suspected) exposure to COVID-19; F17.210 Nicotine dependence, cigarettes, uncomplicated; Z23 Encounter for immunization; Z79.899 Other long term (current) drug therapy; Z88.0 Allergy status to penicillin; Y90.8 Blood alcohol level of 240 mg/100 ml or more; X99.1XXA Assault by knife, initial encounter
CPT/HCPCS: 36415; 71045; 71260; 74177; 80048; 80053; 80076; 80306; 80320; 81000; 82550; 83605; 83735; 84100; 85025; 85027; 85379; 85384; 85610; 85730; 86850; 86900; 86901; 86920; 87081; 87636; 90471; 90715; 93041; 94640; 94664; 96374; 96375; 99291; 99292